=== PATIENT | female | born 1990 | race Caucasian/White ===

== ENCOUNTER → 2019-03-13 | Outpatient (CLI) | payer OTHER ==
[~2019-03-13] MED LIST: PROBIOTIC1 EAC2 PO; VITAMIN D PO
== END ==
LOC: M.RAD 15:09 → M.PC 15:09
DX: M41.86 Other forms of scoliosis, lumbar region (principal); M25.562 Pain in left knee

== ENCOUNTER → 2019-04-03 | Outpatient (CLI) | payer OTHER | LOC: M.PC 02:18 | DX: M47.814 Spondylosis without myelopathy or radiculopathy, thoracic region (principal); M25.862 Other specified joint disorders, left knee ==